=== PATIENT | female | born 1960 | race Caucasian/White ===

== ENCOUNTER 2017-10-03 17:50 | Emergency (ER) | payer OTHER ==
[~2017-10-03] VITALS: Ht 154.9 cm; Wt 72.6 kg
--- NOTE | ~2017-10-03 | EKG ---
[place] [address] [facility] [place] [address] ELECTROCARDIOGRAM REPORT Name: LENA YAN Room #: [facility]#: [id number] Admission: 10/03/17 Attend Phys: Discharge: 10/03/17 Date of : 60 Report #: [id number] THIS REPORT FOR: //name// [facility] ED Test Date: 2017-10-03 Test Time: 18:56:01 Pat Name: LENA ENEDELIA ATR Department: Room: Gender: F Property Loss Insurance Claim Adjuster: LUCAS : 1960 Requested By: Yumiko Koroma Order Number: [id number] MD: Michel Benavidez Measurements Intervals [place] Rate: 110 P: 69 DC: 127 QRS: 58 QRSD: 73 T: 58 QT: 309 QTc: 419 Interpretive Statements Sinus tachycardia Otherwise no significant abnormality No previous ECG available for comparison Electronically Signed On 10-04-2017 8:15:49 INDUSTRIAL DESIGNER by Michel Benavidez [email or web address] <ELECTRONICALLY SIGNED> By: Michel Benavidez MD, [facility] 10/04/17 0815 1856 1856 Michel Benavidez MD, FACC /EPI
[~2017-10-03 17:50] MED LIST: ADULT LOW DOSE81 MG; ADVAIR 250-501 EACH; HCTZ; LANTUSSOLASTAR; NOVOLOG100 UNIT/1; ZESTRIL
[2017-10-03] MEDS ORDERED: BEVESPI AEROS10.7 GM INH (18:16)
[2017-10-03] MEDS ORDERED: VENTOLIN HFA 1818 GM INH (18:16)
[2017-10-03] MEDS ORDERED: GLIPIZIDE 10 MG10 MG PO (18:17)
[2017-10-03] MEDS ORDERED: SYMBICORT160 MCG/4. INH (18:17)
[2017-10-03] MEDS ORDERED: NEURONTIN600 MG PO (18:17)
[2017-10-03] MEDS ORDERED: GLUCOPHAGE XR750 MG PO (18:17)
[2017-10-03] MEDS ORDERED: ENTOCORT EC3 MG PO (18:18)
[2017-10-03] MEDS ORDERED: CELLCEPT500 MG PO (18:18)
[2017-10-03] MEDS ORDERED: CLARITIN10 MG PO (18:18)
[2017-10-03] MEDS ORDERED: PIOGLITAZONE15 MG (18:19)
[2017-10-03] MEDS ORDERED: OMEPRAZOLE40 MG PO (18:19)
[2017-10-03] MEDS ORDERED: PREDNISONE 5 MG5 M1 PO (18:19)
[2017-10-03] MEDS ORDERED: PRAVACHOL20 MG PO (18:20)
[2017-10-03] MEDS ORDERED: ZESTRIL10 MG PO (18:20)
[2017-10-03] MEDS ORDERED: SINGULAIR 10 MG10 M1 PO (18:21)
[2017-10-03] MEDS ORDERED: FLEXERIL PO (18:21)
[2017-10-03] MEDS ORDERED: NOVOLOG100 UNIT/M SUBQ (18:21)
[2017-10-03] MEDS ORDERED: LANTUS SOL100 UNIT/1 SUBQ (18:22)
[2017-10-03] MEDS ORDERED: DIFLUCAN200 MG PO (18:23)
[2017-10-03] MEDS ORDERED: OXYCODONE HCL 55 MG PO (18:23)
[2017-10-03] MEDS ORDERED: ASPIR 8181 MG PO (18:23)
[2017-10-03 19:21] LABS: ABSOLUTE NEUTROPHILS 6.1 thou/uL (1.4-8.2); BASOPHILS 0.2 % (0.0-2.0); HEMATOCRIT 43.3 % (37.0-47.0); HEMOGLOBIN 13.9 gm/dL (12.0-15.0); LYMPHOCYTES 9.5 % (24.0-44.0); MCH 27.9 pg (26.0-34.0); MCHC 32.1 g/dL (28.0-37.0); MCV 86.8 fL (80.0-100.0); PLATELET COUNT 141 thou/uL (150-400); POLYS 78.3 % (36.0-66.0); RBC 4.99 mil/uL (4.20-5.00); RDW 15.6 % (10.5-14.5); WBC 7.8 thou/uL (4.0-11.0)
[2017-10-03 19:32] LABS: ANION GAP 8 mmol/L (7-16); BUN 30 mg/dL (7-18); CALCIUM 9.9 mg/dL (8.5-10.1); CHLORIDE 98 mmol/L (98-107); CO2 30 mmol/L (21-32); CREATININE 1.6 mg/dL (0.6-1.0); GLUCOSE 394 mg/dL (74-106); POTASSIUM 4.9 mmol/L (3.5-5.1); SODIUM 136 mmol/L (136-145)
[2017-10-03 19:43] LABS: ALBUMIN 3.8 g/dL (3.4-5.0); SGOT 16 U/L (15-37); SGPT 25 U/L (30-65); TOTAL BILIRUBIN 0.2 mg/dL (<0.1-1.0); TOTAL PROTEIN 7.6 g/dL (6.4-8.2); TROPONIN-I < 0.04 ng/mL (<0.06)
[2017-10-03] MEDS ORDERED: TESSALON PERLE100 MG PO (20:22)
[2017-10-03] MEDS ORDERED: ACCUNEB SO1.25 MG/1 INH (20:22)
[2017-10-03] MEDS ORDERED: AZITHROMYCIN 2250 MG PO (20:22)
[2017-10-03] MEDS ORDERED: PREDNISONE 20 M20 MG PO (20:22)
[2017-10-03 20:27] VITALS: BP 142/68
== END 2017-10-03 20:30 | disposition home or self-care (01) ==
LOC: ER 17:50
PROVIDERS: Physician Assistant
DX: J45.901 Unspecified asthma with (acute) exacerbation (principal); J18.9 Pneumonia, unspecified organism; R00.0 Tachycardia, unspecified; E11.9 Type 2 diabetes mellitus without complications; I10 Essential (primary) hypertension; Z90.710 Acquired absence of both cervix and uterus; Z90.49 Acquired absence of other specified parts of digestive tract; Z79.4 Long term (current) use of insulin; Z88.8 Allergy status to other drugs, medicaments and biological substances; Z87.891 Personal history of nicotine dependence

== ENCOUNTER 2017-10-16 16:02 | Inpatient (IN) | payer OTHER ==
[~2017-10-16] VITALS: Ht 154.9 cm; Wt 70.8 kg
--- NOTE | ~2017-10-16 | HC ---
[facility] [place] [address] CONSULTATION Name: MCDANIELSIGNACIA ARTLENA Porter Room #: 443-P [facility] M.R.#: [id number] Admission: 10/16/17 Attend Phys: Rhonda Fair MD Discharge: 10/19/17 Date of : 60 Report #: [id number] THIS REPORT FOR: //name// CC: Celso Seth DATE OF SERVICE: 10/17/2017 PULMONARY CONSULTATION REFERRING PROVIDER: NISHI Parada REASON FOR CONSULTATION: Exacerbation of asthma. CHIEF COMPLAINT: Shortness of breath. HISTORY OF PRESENT ILLNESS: Our group was asked to evaluate this patient in consultation while hospitalized at [facility]. She is typically followed for her asthma/COPD by Dr. Celso Reynoso and Dr. Sybil Lara. The patient states she has been on inhaled therapy, usually with Breo and had recently been started also on Bevespi and noted some improvement in symptoms. Because of cost, recently was switched from Breo to Symbicort and noted some decline since that time. In fact, because of increased symptoms of nonproductive cough, shortness of breath and wheezing, presented to our Emergency Department 10/03/2017. It was recommended she be admitted for an exacerbation of her asthma, the patient refused. Had been on high dose steroid taper and had been improving over the last 2 weeks and some increasing cough, shortness of breath and wheezing. No fevers, chills or sweats, represented to the Emergency Department yesterday evening with similar complaints. The patient was given systemic steroids, bronchodilators and was also found to be hypercapnic with a pCO2 of 58 in the Emergency Department. The patient had significant improvement overnight. The patient does not know what her peak flows are and is not measured in the recent past, not been recommended for injectable therapy of any kind nor has she identified what bronchial thermoplasty is. ALLERGIES: None known. PAST MEDICAL HISTORY: 1. Autoimmune hepatitis, exact disease uncertain to me. 2. Asthma, persistent severe. 3. Diabetes mellitus, type 2. [facility] [address] [place] [address] CONSULTATION Name: LENA YAN Room #: 443-P [facility]#: [id number] Admission: 10/16/17 Attend Phys: Rhonda Fair MD Discharge: 10/19/17 Date of : 60 Report #: [id number] 4. Hypertension. OUTPATIENT MEDICATIONS: Include albuterol inhaler, Bevespi inhaler twice daily, metformin, Symbicort 160/4.5 two puffs twice daily, gabapentin 600 t.i.d., glipizide 10 mg daily, loratadine daily, CellCept 1000 mg twice daily, Entocort, pioglitazone, prednisone 5 mg, the patient states she does not take daily; omeprazole, lisinopril, pravastatin, Flexeril, Singulair, aspirin. SOCIAL HISTORY: The patient is an ex-smoker quitting over 5 years ago. No pets at home. 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 FAMILY HISTORY: Negative for any significant pulmonary disease. REVIEW OF SYSTEMS: CONSTITUTIONAL: No fevers, chills or sweats. No change in weight or appetite. ENT: No upper respiratory congestion or rhinorrhea at this time. CARDIOVASCULAR: No chest pain or palpitations, some chest tightness. GASTROINTESTINAL: No nausea, vomiting, diarrhea, constipation or abdominal pain. GENITOURINARY: No dysuria, no frequency, hematuria. INTEGUMENT: Denies any rash. MUSCULOSKELETAL: No new joint pains or swelling. PHYSICAL EXAMINATION: VITAL SIGNS: Afebrile, pulse 100 and regular, respiratory rate 20, blood pressure 132/75, current oxygen saturation 91% on room air. GENERAL: This is a pleasant middle-aged woman, does not appear in any distress. HEENT: Clear oropharynx, Mallampati 2 airway. NECK: Supple, no lymphadenopathy. LUNGS: Diminished with diffuse expiratory wheezes noted throughout. CARDIOVASCULAR: Heart regular. No murmurs noted. ABDOMEN: Soft, nontender, no masses, no hepatosplenomegaly. EXTREMITIES: Without edema. They are warm with 2+ pulses. LABORATORY DATA: Chest x-ray revealed hyperinflation, otherwise clear. Chemistry profile normal except for markedly elevated glucose of 428. No liver enzymes this admission. White blood cell count 6000, hemoglobin 14, hematocrit 45, platelet count 107. Arterial blood gas revealed pH 7.34, pCO2 of 58, pO2 of 81, bicarbonate 31 on 2 liters nasal cannula. IMPRESSION: 1. Acute exacerbation of asthma/status asthmaticus, slowly improving. 2. Underlying severe persistent asthma that may benefit from additional treatment if indicated. We will defer those recommendations to her providers who likely evaluated for elevated IgE and eosinophil count in the past. 3. History of autoimmune hepatitis. [facility] [address] [place] [address] CONSULTATION Name: LENA YAN Room #: 443-P [facility].#: [id number] Admission: 10/16/17 Attend Phys: Rhonda Fair MD Discharge: 10/19/17 Date of : 60 Report #: [id number] SUGGESTIONS: 1. Check peak flows. 2. Systemic steroid with taper. 3. Continue with frequent bronchodilators. 4. Would clarify her home medications. It appears that she has been receiving excessive amounts of long-acting beta agonist, which would put her at increased risk for cardiovascular . This was discussed with the patient about the need to clarify these medications. Would consider possible trial of a Trelegy inhaler as opposed to Breo and Bevespi. We gave her all 3 medications including long-acting anticholinergic, long-acting beta agonist and inhaled steroids without duplicating other medications. We will follow along. Thank you for requesting our suggestions. <ELECTRONICALLY SIGNED> By: Clemente Andino MD 10/24/17 1823 1208 57 Clemente Andino MD /nt
--- NOTE | ~2017-10-16 | EKG ---
[place] [address] [address] [facility] [place] [address] ELECTROCARDIOGRAM REPORT Name: LENA YAN Room #: [facility]#: [id number] Admission: 10/16/17 Attend Phys: Discharge: Date of : 60 Report #: [id number] THIS REPORT FOR: //name// [facility] ED Test Date: 2017-10-16 Test Time: 16:34:37 Pat Name: LENA ENEDELIA ART Department: Room: Gender: F Sprayer Insecticide: LUCAS : 1960 Requested By: Benjamin Taveras Order Number: [id number] MD: Michel Benavidez Measurements Intervals [place] Rate: 109 P: 88 [place]: 123 QRS: 66 QRSD: 79 T: 49 QT: 320 QTc: 431 Interpretive Statements Sinus tachycardia Otherwise no significant abnormality Compared to ECG 10/03/2017 18:56:01 No significant change was found Electronically Signed On 10-16-2017 17:42:02 MOLD MACHINE OPERATOR by Michel Benavidez [email or web address] <ELECTRONICALLY SIGNED> By: Michel Benavidez MD, [facility] 10/16/17 1742 1634 1634 Michel Benavidez MD, FACC /EPI
[~2017-10-16 16:02] MED LIST changes: +ACCUNEB SO1.25 MG/1 INH; +ASPIR 8181 MG PO; +AZITHROMYCIN 2250 MG PO; +BEVESPI AEROS10.7 GM INH; +CELLCEPT500 MG PO; +CLARITIN10 MG PO; +DIFLUCAN200 MG PO; +ENTOCORT EC3 MG PO; +FLEXERIL PO; +GLIPIZIDE 10 MG10 MG PO; +GLUCOPHAGE XR750 MG PO; +LANTUS SOL100 UNIT/1 SUBQ; +NEURONTIN600 MG PO; +NOVOLOG100 UNIT/M SUBQ; +OMEPRAZOLE40 MG PO; +OXYCODONE HCL 55 MG PO; +PIOGLITAZONE15 MG; +PRAVACHOL20 MG PO; +PREDNISONE 20 M20 MG PO; +PREDNISONE 5 MG5 M1 PO; +SINGULAIR 10 MG10 M1 PO; +SYMBICORT160 MCG/4. INH; +TESSALON PERLE100 MG PO; +VENTOLIN HFA 1818 GM INH; +ZESTRIL10 MG PO
[2017-10-16 16:03] VITALS: BP 156/98
[2017-10-16 16:43] LABS: ABSOLUTE NEUTROPHILS 7.1 thou/uL (1.4-8.2); BASOPHILS 0.7 % (0.0-2.0); EOSINOPHILS 0.4 % (0.0-3.0); HEMATOCRIT 42.8 % (37.0-47.0); HEMOGLOBIN 13.7 gm/dL (12.0-15.0); LYMPHOCYTES 12.3 % (24.0-44.0); MCH 27.5 pg (26.0-34.0); MCHC 31.9 g/dL (28.0-37.0); MCV 86.3 fL (80.0-100.0); MONOCYTES 7.8 % (1.0-8.0); PLATELET COUNT 114 thou/uL (150-400); POLYS 78.8 % (36.0-66.0); RBC 4.96 mil/uL (4.20-5.00); RDW 16.1 % (10.5-14.5)
[2017-10-16 16:55] LABS: ANION GAP 5 mmol/L (7-16); BUN 19 mg/dL (7-18); CHLORIDE 97 mmol/L (98-107); CO2 33 mmol/L (21-32); CREATININE 1.3 mg/dL (0.6-1.0); GLUCOSE 321 mg/dL (74-106); POTASSIUM 4.4 mmol/L (3.5-5.1); SODIUM 135 mmol/L (136-145)
[2017-10-16 16:58] LABS: TROPONIN-I < 0.04 ng/mL (<0.06)
[2017-10-16 17:00] LABS: BE(vivo) 3.6 mmol/L (-2 to +3); PCO2 58.3 mmHg (35.0-45.0); PO2 80.9 mmHg (80.0-100.0); pH 7.343 (7.360-7.450); sO2 95.1 % (92.0-98.0)
[2017-10-16 20:07] VITALS: BP 148/86
[2017-10-16 20:39] VITALS: BP 156/76
[2017-10-17 02:09] LABS: GLYCOHEMOGLOBIN (HGB A1C) 9.7 % (4.8-5.6)
[2017-10-17 03:07] VITALS: BP 155/94
[2017-10-17 04:47] LABS: ABSOLUTE NEUTROPHILS 6.1 thou/uL (1.4-8.2); EOSINOPHILS 0.1 % (0.0-3.0); HEMATOCRIT 44.9 % (37.0-47.0); HEMOGLOBIN 13.8 gm/dL (12.0-15.0); LYMPHOCYTES 4.7 % (24.0-44.0); MCH 27.3 pg (26.0-34.0); MCHC 30.8 g/dL (28.0-37.0); MCV 88.6 fL (80.0-100.0); MONOCYTES 0.7 % (1.0-8.0); PLATELET COUNT 107 thou/uL (150-400); POLYS 94.5 % (36.0-66.0); RBC 5.06 mil/uL (4.20-5.00); RDW 16.3 % (10.5-14.5); WBC 6.4 thou/uL (4.0-11.0)
[2017-10-17 04:57] LABS: CALCIUM 9.6 mg/dL (8.5-10.1); CREATININE 1.2 mg/dL (0.6-1.0); POTASSIUM 4.9 mmol/L (3.5-5.1)
[2017-10-17 06:06] LABS: ANISOCYTOSIS 1+; LARGE PLATELETS OCCASIONAL
[2017-10-17 08:40] VITALS: BP 132/75
[2017-10-17 17:12] VITALS: BP 145/74
[2017-10-17 20:19] VITALS: BP 151/77
[2017-10-18 03:24] VITALS: BP 150/78
[2017-10-18 03:57] LABS: ABSOLUTE NEUTROPHILS 8.3 thou/uL (1.4-8.2); BASOPHILS 0.1 % (0.0-2.0); HEMATOCRIT 43.1 % (37.0-47.0); HEMOGLOBIN 13.7 gm/dL (12.0-15.0); LYMPHOCYTES 5.2 % (24.0-44.0); MCH 27.7 pg (26.0-34.0); MCHC 31.7 g/dL (28.0-37.0); MCV 87.3 fL (80.0-100.0); MONOCYTES 2.9 % (1.0-8.0); PLATELET COUNT 120 thou/uL (150-400); POLYS 91.8 % (36.0-66.0); RBC 4.94 mil/uL (4.20-5.00); RDW 16.1 % (10.5-14.5)
[2017-10-18 04:05] LABS: CALCIUM 9.6 mg/dL (8.5-10.1); POTASSIUM 4.8 mmol/L (3.5-5.1)
[2017-10-18 08:47] VITALS: BP 130/73
[2017-10-18 16:27] VITALS: BP 132/74
[2017-10-18 19:20] VITALS: BP 169/90
[2017-10-19 03:48] VITALS: BP 164/96
[2017-10-19 08:00] VITALS: BP 163/64
[2017-10-19 10:25] VITALS: BP 164/96
[2017-10-19] MEDS ORDERED: PREDNISONE 10 M10 MG PO (12:26)
== END 2017-10-19 12:53 | disposition home or self-care (01) | DRG 189 ==
LOC: ER 16:02 → EROBS 17:40 → 4S 17:40 → ENTRNSPT 10-19 12:47 → EDTRNSPTSTS 10-19 12:50 → 4S 10-19 12:53
PROVIDERS: Internal Medicine Endocrinology, Diabetes & Metabolism; Physician Assistant
DX: J96.01 Acute respiratory failure with hypoxia (principal); N17.9 Acute kidney failure, unspecified; J45.52 Severe persistent asthma with status asthmaticus; J96.02 Acute respiratory failure with hypercapnia; E11.65 Type 2 diabetes mellitus with hyperglycemia; I12.9 Hypertensive chronic kidney disease with stage 1 through stage 4 chronic kidney disease, or unspecified chronic kidney disease; N18.9 Chronic kidney disease, unspecified; D69.6 Thrombocytopenia, unspecified; K76.89 Other specified diseases of liver; E11.22 Type 2 diabetes mellitus with diabetic chronic kidney disease; E78.5 Hyperlipidemia, unspecified; K75.4 Autoimmune hepatitis; Z87.891 Personal history of nicotine dependence; Z90.49 Acquired absence of other specified parts of digestive tract; Z90.710 Acquired absence of both cervix and uterus; Z79.4 Long term (current) use of insulin; Z79.82 Long term (current) use of aspirin; Z79.899 Other long term (current) drug therapy
CPT/HCPCS: 10100